=== PATIENT | female | born 1965 | race Hispanic/Latino ===

== ENCOUNTER 2017-05-24 23:28 | Emergency (ER) | payer MEDICARE ==
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
[2017-05-25 02:50] LABS: Urine Drugs of Abuse Note Disclamer
[2017-05-25] MEDS ORDERED: ZOFRAN ODT PO ONE (02:53)
[2017-05-25] MEDS ORDERED: NORCO 5/325 PO ONE (02:53)
[2017-05-25 02:57] LABS: Bacteria,Urine 1+ /HPF (Negative); Bilirubin,Urine NEG (Negative); Blood,Urine NEG (Negative); Ketones,Urine NEG (Negative); Leukocyte Esterase,Urine NEG (Negative); Mucus,Urine 1+ /HPF; Nitrite,Urine NEG (Negative); Urobilinogen,Urine < 2.0 mg/dL (<2.0)
[2017-05-25] MEDS ORDERED: VIREAD PO SCH (02:57)
[2017-05-25] MEDS ORDERED: EMTRIVA PO SCH (03:00)
[2017-05-25] MEDS ORDERED: ISENTRESS PO SCH (03:00)
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
[2017-05-25 04:00] LABS: Basophils % (Auto) 0.7 % (0.0-1.8); Eosinophils % (Auto) 1.5 % (0.0-4.3); Hematocrit 47.8 % (30.3-42.9); Hemoglobin 15.9 gm/dl (10.1-14.3); Mean Corpuscular HGB Conc 33 % (30-34); Mean Corpuscular Hemoglobin 32 pg (28-32); Mean Corpuscular Volume 96 fl (79-97); Platelet Count 274 K/mm3 (140-440); Red Blood Count 4.97 M/mm3 (3.65-5.03); White Blood Count 9.3 K/mm3 (4.5-11.0)
[2017-05-25 04:09] LABS: Anion Gap 24 mmol/L; Blood Urea Nitrogen 9 mg/dL (7-17); Calcium 8.4 mg/dL (8.4-10.2); Carbon Dioxide 22 mmol/L (22-30); Chloride 98.4 mmol/L (98-107); Glucose 115 mg/dL (65-100); Potassium 4.1 mmol/L (3.6-5.0); Sodium 140 mmol/L (137-145)
[2017-05-25 04:13] LABS: Alanine Aminotransferase 16 units/L (7-56); Albumin 3.9 g/dL (3.9-5); Albumin/Globulin Ratio 1.1 %; Alkaline Phosphatase 169 units/L (35-129); Total Protein 7.6 g/dL (6.3-8.2)
[2017-05-25 04:26] LABS: HIV-1 Antigen p24 Non React (Non React); HIVR-1/2 Ab Non React (Non React)
[2017-05-25 04:48] VITALS: BP 143/73
[2017-05-25 04:56] LABS: Bilirubin,Direct < 0.2 mg/dL (0-0.2); Bilirubin,Indirect 0.1 mg/dL
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
== END 2017-05-25 07:08 | disposition home or self-care (01) ==
LOC: ED 23:28
DX: T74.21XA Adult sexual abuse, confirmed, initial encounter (principal); R10.2 Pelvic and perineal pain; M54.5 Low back pain; M79.1 Myalgia; F17.200 Nicotine dependence, unspecified, uncomplicated; F12.10 Cannabis abuse, uncomplicated; Y08.89XA Assault by other specified means, initial encounter; Y93.9 Activity, unspecified; Y92.9 Unspecified place or not applicable; Y99.9 Unspecified external cause status
CPT/HCPCS: 36415; 70450; 72100; 72125; 73030; 80048; 80074; 80307; 81001; 84703; 85025; 87806; 99285; G0480; 80320; Q0162

== ENCOUNTER 2017-05-27 01:28 | Emergency (ER) | payer MEDICARE ==
[2017-05-27 01:39] VITALS: BP 142/78
[2017-05-27 02:11] LABS: Basophils % (Auto) 0.8 % (0.0-1.8); Hematocrit 44.3 % (30.3-42.9); Hemoglobin 14.9 gm/dl (10.1-14.3); Mean Corpuscular HGB Conc 34 % (30-34); Mean Corpuscular Hemoglobin 32 pg (28-32); Mean Corpuscular Volume 95 fl (79-97); Platelet Count 247 K/mm3 (140-440); Red Blood Count 4.66 M/mm3 (3.65-5.03); White Blood Count 7.8 K/mm3 (4.5-11.0)
[2017-05-27 02:26] LABS: Anion Gap 23 mmol/L; Blood Urea Nitrogen 6 mg/dL (7-17); Calcium 8.5 mg/dL (8.4-10.2); Carbon Dioxide 21 mmol/L (22-30); Chloride 100.1 mmol/L (98-107); Glucose 101 mg/dL (65-100); Potassium 3.9 mmol/L (3.6-5.0); Sodium 140 mmol/L (137-145)
--- NOTE | 2017-05-28 14:09 | ED Elopement Review ---
ED Pt Elopement review - Results review Lab results: Laboratory Tests 05/27/17 05/27/17 05/27/17 01:53 01:53 01:53 WBC RBC Hgb Hct MCV MCH MCHC RDW Plt Count Lymph % (Auto) [place] % (Auto) Eos % (Auto) Baso % (Auto) Lymph # [place] # Eos # Baso # Seg Neutrophils % Seg Neutrophils # Sodium 140 Potassium 3.9 Chloride 100.1 Carbon Dioxide 21 L Anion Gap 23 BUN 6 L Creatinine 0.3 L Estimated GFR > 60 BUN/Creatinine Ratio 20.00 Glucose 101 H Calcium 8.5 HCG, Qual Negative Plasma/Serum Alcohol 0.29 H 05/27/17 01:53 WBC 7.8 RBC 4.66 Hgb 14.9 H Hct 44.3 H MCV 95 MCH 32 MCHC 34 RDW 15.0 Plt Count 247 Lymph % (Auto) 27.5 [place] % (Auto) 5.0 Eos % (Auto) 1.0 Baso % (Auto) 0.8 Lymph # 2.1 Ferry # 0.4 Eos # 0.1 Baso # 0.1 Seg Neutrophils % 65.7 Seg Neutrophils # 5.1 Sodium Potassium Chloride Carbon Dioxide Anion Gap BUN Creatinine Estimated GFR BUN/Creatinine Ratio Glucose Calcium HCG, Qual Plasma/Serum Alcohol - Call Back decision Pt Call Back Decision: Pt to F/U with PMD
== END 2017-05-27 02:15 | disposition left against medical advice (07) ==
LOC: ED 01:28
DX: Z00.8 Encounter for other general examination (principal); F32.9 Major depressive disorder, single episode, unspecified; M32.9 Systemic lupus erythematosus, unspecified; F17.200 Nicotine dependence, unspecified, uncomplicated; Z88.8 Allergy status to other drugs, medicaments and biological substances; Z53.21 Procedure and treatment not carried out due to patient leaving prior to being seen by health care provider
CPT/HCPCS: 36415; 80048; 84703; 85025; G0480; 80320

== ENCOUNTER 2018-02-25 21:44 | Emergency (ER) | payer MEDICARE ==
[2018-02-25] MEDS ORDERED: ATIVAN IM PRN (22:02)
[2018-02-25] MEDS ORDERED: HALDOL IM PRN (22:02)
--- NOTE | 2018-02-25 22:03 | Emergency Department Report ---
ED Psych HPI - General Chief Complaint: Psych Stated Complaint: SUICIDAL Time Seen by Provider: 02/25/18 21:49 Source: patient, EMS (verbal report received from EMS.ems notes not available at time of chart dictation), RN notes reviewed, old records reviewed Mode of arrival: Ambulatory - History of Present Illness Initial Comments: Past medical history: Gastric bypass, perforated gastric ulcer, alcohol abuse, depression and suicide attempt in the past This is a 52-year-old female who is brought to the hospital by EMS for suicidality. As per verbal report from EMS, patient's son contacted police department, and reported that she had threatened suicide. Patient apparently consumed some alcohol prior to arrival. She will not state if she consumed anything else. She reports that she has access to guns and firearms. She states "I just want to end it all." Patient is intoxicated, belligerent, verbally combative and abusive, and can therefore not describe exacerbating or relieving factors. MD Complaint: other (patient is intoxicated) -: unknown Associated Psychiatric Symptoms: depression, suicidal ideation History of same: Yes Quality: constant, other Worsens With: other Context: other Associated Symptoms: other If Self Harm: admits thoughts of - Related Data Home Medications Medication Instructions Recorded Confirmed Last Taken Losartan [Cozaar] 50 mg PO QDAY 09/02/17 09/02/17 Unknown Prazosin [Minipress] 1 mg PO QHS 09/02/17 09/02/17 Unknown Sucralfate [Carafate] 1 gm PO BID 09/02/17 09/02/17 Unknown buPROPion SR [Wellbutrin SR] 100 mg PO QAM 09/02/17 09/02/17 Unknown busPIRone [Buspar] 10 mg PO TID 09/02/17 09/02/17 Unknown Previous Rx's Medication Instructions Recorded Last Taken Type FLUoxetine [PROzac] 20 mg PO QDAY capsule 09/04/17 Unknown Rx HYDROmorphone [Dilaudid] 1 mg PO Q4H PRN #20 tablet 09/04/17 Unknown Rx Nicotine [Habitrol] 14 mg TD QDAY patch 09/04/17 Unknown Rx Pantoprazole [Protonix TAB] 40 mg PO BID #60 tablet 09/04/17 Unknown Rx hydrOXYzine PAMOATE [Vistaril] 25 mg PO BID capsule 09/04/17 Unknown Rx Allergies Allergy/AdvReac Type Severity Reaction Status Date / Time diclofenac sodium Allergy Anaphylaxis Verified 05/25/17 00:19 [From Arthrotec] misoprostol [From Arthrotec] Allergy Anaphylaxis Verified 05/25/17 00:19 orphenadrine citrate Allergy Anaphylaxis Verified 05/25/17 00:19 [From Norflex] ED Review of Systems ROS: Stated complaint: SUICIDAL Other details as noted in HPI Comment: Unobtainable due to pts medical conditions ED Past Medical Hx - Past Medical History Hx Hypertension: Yes (RESOLVED SINCE WEIGHT LOSS) Hx Congestive Heart Failure: No Hx Diabetes: Yes (Use to take Actos years ago.) Hx Renal Disease: No Hx Arthritis: Yes Hx Seizures: No Hx Asthma: No Hx COPD: No Hx Dementia: No Additional medical history: Lupus. depression. substance abuse - Surgical History Hx Cholecystectomy: Yes Hx Appendectomy: Yes Additional Surgical History: Left Knee. Lower Back - Social History Smoking Status: Current Every Day Smoker - Medications Home Medications: Home Medications Medication Instructions Recorded Confirmed Last Taken Type Losartan [Cozaar] 50 mg PO QDAY 09/02/17 09/02/17 Unknown History Prazosin [Minipress] 1 mg PO QHS 09/02/17 09/02/17 Unknown History Sucralfate [Carafate] 1 gm PO BID 09/02/17 09/02/17 Unknown History buPROPion SR [Wellbutrin SR] 100 mg PO QAM 09/02/17 09/02/17 Unknown History busPIRone [Buspar] 10 mg PO TID 09/02/17 09/02/17 Unknown History FLUoxetine [PROzac] 20 mg PO QDAY capsule 09/04/17 Unknown Rx HYDROmorphone [Dilaudid] 1 mg PO Q4H PRN #20 tablet 09/04/17 Unknown Rx Nicotine [Habitrol] 14 mg TD QDAY patch 09/04/17 Unknown Rx Pantoprazole [Protonix TAB] 40 mg PO BID #60 tablet 09/04/17 Unknown Rx hydrOXYzine PAMOATE [Vistaril] 25 mg PO BID capsule 09/04/17 Unknown Rx ED Physical Exam - General Limitations: Other (alcohol intoxication) General appearance: alert, in no apparent distress - Head Head exam: Present: atraumatic, normocephalic - Eye Eye exam: Present: normal appearance, EOMI. Absent: nystagmus - ENT ENT exam: Present: normal exam, normal orophraynx, mucous membranes moist, normal external ear exam - Neck Neck exam: Present: normal inspection, full ROM. Absent: tenderness, meningismus, lymphadenopathy - Respiratory Respiratory exam: Present: normal lung sounds bilaterally. Absent: respiratory distress - Cardiovascular Cardiovascular Exam: Present: regular rate, normal rhythm, normal heart sounds. Absent: systolic murmur, diastolic murmur, rubs, gallop - GI/Abdominal GI/Abdominal exam: Present: soft, normal bowel sounds. Absent: distended, tenderness, guarding, rebound, rigid, pulsatile mass - Extremities Exam Extremities exam: Present: normal inspection, full ROM. Absent: pedal edema, joint swelling, calf tenderness - Back Exam Back exam: Present: normal inspection, full ROM. Absent: tenderness, CVA tenderness (R), paraspinal tenderness, vertebral tenderness - Neurological Exam Neurological exam: Present: alert, oriented X3, CN II-XII intact, normal gait, other (Extraocular movements intact. Tongue midline. No facial droop. Facial sensation intact to light touch in the V1, V2, V3 distribution bilaterally. 5 and 5 strength in 4 extremities.. Sensation is intact to light touch in 4 extremities.). Absent: motor sensory deficit - Psychiatric Psychiatric exam: Present: agitated, anxious, suicidal ideation - Skin Skin exam: Present: warm, dry, intact, normal color. Absent: rash ED Course Vital Signs 02/26/18 02/26/18 00:14 02:48 Temperature 98.7 F Pulse Rate 84 77 Respiratory 17 17 Rate Blood Pressure 85/38 98/57 [Left] O2 Sat by Pulse 99 97 Oximetry - Reevaluation(s) Reevaluation #1: 02/25/18 23:05 Differential diagnosis, including when not limited to: Alcohol intoxication, psychosis, medical clearance for psychiatric placement, intracranial injury, cervical spine injury Assessment and plan: 52-year-old female with alcohol intoxication and suicidality. The patient is clinically intoxicated, walking with a steady gait , requires a 1013. Her physical exam is otherwise unremarkable. Laboratory studies are essentially unremarkable. Patient is noted to be hitting her head against a wall. Patient placed on a 1013. She is medicated with Haldol and Ativan for her safety. Noncontrast CT scan of the brain and cervical spine are sent and are pending. Reevaluation #2: 02/26/18 03:35 The patient's blood pressure is improved. Patient is sleeping after Haldol and Ativan. CT scan of the brain and cervical spine negative for acute traumatic diseAse. At this point in time, it does not appear to be an immediate medical contraindication to psychiatric admission, evaluation, consultation and placement. The crisis team has been paged. ED Medical Decision Making - Lab Data Result diagrams: 02/25/18 22:05 02/25/18 22:05 Labs 02/25/18 02/25/18 02/25/18 22:05 22:05 22:05 WBC 6.1 RBC 4.28 Hgb 11.8 Hct 35.9 MCV 84 MCH 28 MCHC 33 RDW 15.0 Plt Count 464 H Lymph % (Auto) 44.3 H [place] % (Auto) 6.3 Eos % (Auto) 0.9 Baso % (Auto) 0.9 Lymph # 2.7 [place] # 0.4 Eos # 0.1 Baso # 0.1 Seg Neutrophils % 47.6 Seg Neutrophils # 2.9 Sodium 147 H Potassium 3.5 L Chloride 109.0 H Carbon Dioxide 19 L Anion Gap 23 BUN 6 L Creatinine 0.4 L Estimated GFR > 60 BUN/Creatinine Ratio 15 Glucose 105 H Calcium 8.0 L Total Creatine Kinase Salicylates < 0.3 L Acetaminophen Plasma/Serum Alcohol 02/25/18 02/25/18 02/25/18 22:05 22:05 22:05 WBC RBC Hgb Hct MCV MCH MCHC RDW Plt Count Lymph % (Auto) [place] % (Auto) Eos % (Auto) Baso % (Auto) Lymph # [place] # Eos # Baso # Seg Neutrophils % Seg Neutrophils # Sodium Potassium Chloride Carbon Dioxide Anion Gap BUN Creatinine Estimated GFR BUN/Creatinine Ratio Glucose Calcium Total Creatine Kinase 135 Salicylates Acetaminophen < 5.0 L Plasma/Serum Alcohol 0.31 H - Radiology Data Radiology results: pending Critical care attestation.: If time is entered above; I have spent that time in minutes in the direct care of this critically ill patient, excluding procedure time. ED Disposition Clinical Impression: History of alcohol abuse, Medical clearance for psychiatric admission Disposition: [id number] PSY HOSP/PSY UNIT Is pt being admited?: No Does the pt Need Aspirin: No Condition: Good Referrals: SHABANA JAIN MD [Primary Care Provider] - 3-5 Days
[2018-02-25 22:19] LABS: Basophils # (Auto) 0.1 K/mm3 (0.0-0.1); Basophils % (Auto) 0.9 % (0.0-1.8); Eosinophils # (Auto) 0.1 K/mm3 (0.0-0.4); Eosinophils % (Auto) 0.9 % (0.0-4.3); Hematocrit 35.9 % (30.3-42.9); Hemoglobin 11.8 gm/dl (10.1-14.3); Lymphocytes # (Auto) 2.7 K/mm3 (1.2-5.4); Lymphocytes % (Auto) 44.3 % (13.4-35.0); Mean Corpuscular HGB Conc 33 % (30-34); Mean Corpuscular Hemoglobin 28 pg (28-32); Mean Corpuscular Volume 84 fl (79-97); Monocytes # (Auto) 0.4 K/mm3 (0.0-0.8); Monocytes % (Auto) 6.3 % (0.0-7.3); Platelet Count 464 K/mm3 (140-440); Red Blood Count 4.28 M/mm3 (3.65-5.03)
[2018-02-25 22:37] LABS: BUN/Creatinine Ratio 15; Blood Urea Nitrogen 6 mg/dL (7-17); Hemolysis Index 26
[2018-02-25] MEDS ORDERED: GEODON IM ONE (23:08)
[2018-02-26] MEDS ORDERED: VITAMIN B-1 100 MG, FOLVITE 1 MG, INFUVITE 10 ML in NACL 0.9% 1000 ML 1,000 ML IV ONE (00:14)
[2018-02-26] MEDS ORDERED: NACL 0.9% 1000 ML 1,000 ML IV ONE (00:14)
--- NOTE | 2018-02-26 01:41 | Cat Scan Report ---
FINAL REPORT EXAM: CT CERVICAL SPINE WO CON HISTORY: ETOH HEAD TRAUMA TECHNIQUE: Routine axial imaging was obtained of the cervical spine without IV contrast with sagittal and coronal reconstructions. FINDINGS: There is severe narrowing the C5-C6 and C6-C7 disc with endplate spurring. The alignment appears normal. There is no evidence of fracture. The facet joints of fairly well maintained. The prevertebral soft tissues and C1-C2 articulation appear intact IMPRESSION: Severe disc degeneration at the C5-C6 and C6-C7 levels. No acute injury.
--- NOTE | 2018-02-26 01:42 | Cat Scan Report ---
FINAL REPORT EXAM: CT HEAD/BRAIN WO CON HISTORY: ETOH HEAD TRAUMA TECHNIQUE: Routine axial imaging was obtained of the brain without IV contrast. Comparison is made to the study of 05/25/2017. FINDINGS: There is mild bifrontal volume loss. There is no evidence of acute stroke or hemorrhage. The ventricular system is appropriate in size and is symmetric. The basal cisterns appear normal. The calvarium appears intact. The mastoid air cells are well pneumatized. The visualized sinuses are clear. IMPRESSION: Mild bifrontal volume loss. No acute stroke or hemorrhage.
[2018-02-26 08:09] LABS: Bilirubin,Urine NEG (Negative); Blood,Urine NEG (Negative); Color,Urine Yellow (Yellow); Mucus,Urine FEW /HPF; Protein,Urine <15 mg/dL mg/dL (Negative); Urobilinogen,Urine < 2.0 mg/dL (<2.0)
[2018-02-26 08:19] LABS: Amphetamine Screen,Urine PRESUMPTIVE NEGATIVE; Cannabinoid Screen,Urine PRESUMPTIVE NEGATIVE; Cocaine Screen,Urine PRESUMPTIVE NEGATIVE; Methadone Screen,Urine PRESUMPTIVE NEGATIVE; Opiate Screen,Urine PRESUMPTIVE NEGATIVE
[2018-02-26 08:32] LABS: Benzodiazepines Screen,Urine PRESUMPTIVE POSITIVE
[2018-02-26] MEDS ORDERED: ATIVAN PO PRN ×2 (09:03)
--- NOTE | 2018-02-26 09:47 | XRay Report ---
RIGHT HAND, 3 views: History: Swelling. There is moderate diffuse non-specific soft tissue swelling. Bone mineralization is borderline. There is no evidence for fracture, dislocation or erosive joint pathology. IMPRESSION: Nonspecific soft tissue swelling. No acute osseous findings identified.
[2018-02-26] MEDS ORDERED: MAGNESIUM SULFATE 2GM/50ML 2 GM/50 ML BAG IV ONE (10:41)
[2018-02-26] MEDS ORDERED: K-DUR PO ONE (10:42)
[2018-02-26 10:52] VITALS: BP 112/55
== END 2018-02-26 13:09 ==
LOC: EEVIPCON 21:44 → ED 21:44
DX: F23 Brief psychotic disorder (principal); E83.42 Hypomagnesemia; E87.6 Hypokalemia; F32.9 Major depressive disorder, single episode, unspecified; I10 Essential (primary) hypertension; E11.9 Type 2 diabetes mellitus without complications; M19.90 Unspecified osteoarthritis, unspecified site; M32.9 Systemic lupus erythematosus, unspecified; F17.200 Nicotine dependence, unspecified, uncomplicated; F10.10 Alcohol abuse, uncomplicated; Z90.49 Acquired absence of other specified parts of digestive tract; Z98.84 Bariatric surgery status; Z88.8 Allergy status to other drugs, medicaments and biological substances; G93.89 Other specified disorders of brain
CPT/HCPCS: 36415; 70450; 72125; 73130; 80048; 80307; 81001; 82550; 83735; 85025; 96365; 96375; 99285; G0480; J1630; J2060; J3411; J3475; J3486; J7030; 80320